=== PATIENT | female | born 1945 | race Caucasian/White ===

== ENCOUNTER 2019-11-27 10:56 | Outpatient (CLI) | payer MEDICARE, SELFPAY ==
[2019-11-27 11:15] VITALS: BP 153/82; PULSE 55; RESP 16; TEMP 36.7; O2SAT 96
[2019-11-27] MEDS: denosumab 60 mg SDV SUBCUT (11:20)
[2019-11-27 11:32] VITALS: BMI 24.3
[2019-11-27 11:50] VITALS: BP 153/84; PULSE 55; RESP 16; TEMP 36.5; O2SAT 96
== END 2019-11-27 10:57 | disposition home or self-care (01) ==
LOC: RHEOACUTE 10:58
PROVIDERS: Family Provider Family Medicine; Visit Provider Internal Medicine Rheumatology
DX: M81.0 Age-related osteoporosis without current pathological fracture (principal)
CPT/HCPCS: 96372; J0897

== ENCOUNTER 2020-01-08 07:43 | Outpatient (CLI) | payer MEDICARE, SELFPAY ==
--- NOTE | 2020-01-08 | MR_ITS ---
WS: [id number] MRI THORACIC SPINE WITHOUT CONTRAST TECHNIQUE: Sagittal T1, T2 and STIR imaging. Axial T2 imaging. Noncontrast imaging obtained. CLINICAL INFORMATION: THORACIC SPINE FRACTURE COMPARISON: None. FINDINGS: Moderate thoracic kyphosis. Anterior wedging in the mid and upper thoracic spine worse at T5-T8. Comp ression of the inferior endplate T8 with edema in the T8 vertebral body. Loss of approximately 25% ve rtebral body height. Anterior wedging at T7 with loss of approximately 50% vertebral body height with compression superior endplate and mild edema. Incidental atypical hemangioma T9 vertebral body. No r etropulsion. Compression at T5 and T6 appears chronic. No high-grade central canal stenosis. Cord signal is normal. Chronic biconcave compression at L3. Mod erate facet arthropathy lower lumbar spine. MR/MR thoracic spin wo con* [id number] IMPRESSION: 1. Acute to subacute compression fractures involving the T7 and T8 vertebral b odies with edema more prominent involving the T8 vertebral body. 2. No retropulsion. No high-grade central canal narrowing. 3. Loss of approximately 50% vertebral body height T7 with anterior wedging an d 25% at T8. 4. Chronic compression at T5 and T6. 5. Atypical hemangioma T9 vertebral body.
== END 2020-01-08 07:44 | disposition home or self-care (01) ==
LOC: RADWPI 07:47
PROVIDERS: Family Provider Family Medicine; PCP Family Medicine; Visit Provider Family Medicine
DX: S22.000A Wedge compression fracture of unspecified thoracic vertebra, initial encounter for closed fracture (principal); X58.XXXA Exposure to other specified factors, initial encounter
CPT/HCPCS: 72146

== ENCOUNTER 2020-10-01 07:57 | Outpatient (CLI) | payer MEDICARE, SELFPAY ==
[2020-10-01 08:09] VITALS: BMI 25.7
--- NOTE | 2020-10-01 08:23 | ECG_ITS ---
[facility] Test Date: 2020-10-01 Pat Name: Tanja Fulton Department: Room: Gender: Female Recovery Operator: : 1945 Requested By: Giorgi Del Real Order Number: [id number] Karen MD: Christoph Prado M.D. Interpretive Statements NAME OF STUDY: LEXISCAN SESTAMIBI STRESS TEST INDICATION: Chest Pressure, PROCEDURE: At the baseline, the EKG revealed sinus bradycardia with a rate of 51 bpm. Poor R wave progression. Some nonspecific T wave changes. The baseline blood pressure was 147/75 mm Hg with a heart rate of 51 beats/min. Lexiscan was infused over a period of 20 seconds. A total of 0.4 milligrams of Lexiscan was infused. The stress phase was continued for a total of 5 minutes. Heart rate at the end of the stress phase was 71 with a blood pressure 143/74. The EKG at the peak infusion revealed no significant changes. Sestamibi was injected 20 seconds after the Lexiscan infusion. Blood pressure at the end of the recovery phase was 67 with a heart rate of 156/75 per minute. CONCLUSION: 1. No significant EKG changes with the LexiScan infusion 2. No LexiScan induced chest pain or cardiac arrhythmia 3. Normal blood pressure and heart rate response 4. Sestamibi/sestamibi perfusion scan pending; see separate report. Electronically Signed On 10-05-2020 23:20:15 CDT by Christoph Prado M.D. [id number]
--- NOTE | 2020-10-01 08:24 | NMCV_ITS ---
NM louisa perf SPECT r/s* [id number] Tanja Fulton Age: 75 Gender: F : 1945 Exam Date: 10/01/2020 08:24 Ordering Phys: Giorgi Sanchez MD Technologist: ILAN Ceron Exam Location: [facility] Indications: CHEST PRESSURE STRESS TEST Please see separate stress test report in [facility] for full findings IMAGE PROTOCOL Rest/Stress 1 Lexiscan Day Radiopharmaceutical Dose (mCi) Administration Site Administered by Rest: Tc-99m 10.6 IV ILAN Reynolds Sestamibi Stress:Tc-99m 32.8 IV ILAN Reynolds Sestamibi Rest: 01-Oct-2020 60 Discovery 630 Stress: 01-Oct-2020 30 Discovery 630 0.4mg Lexiscan. Images obtained in supine and prone position. SPECT RESULTS Technical Quality: Excellent Raw Data Analysis: Normal Image Corrections: No attenuation or motion correction applied Summed Stress Score: 0 Summed Rest Score: 0 Summed Difference Score: 0 PERFUSION FINDINGS Fairly uniform myocardial tracer uptake with no significant perfusion of normalities. FUNCTIONAL RESULTS (calculated via Gated SPECT) Stress Image LV EF (%): 81 Stress EDV (mL):58 TID: 0.94 Stress ESV (mL):11 FUNCTIONAL FINDINGS: Segmental wall motion analysis revealing no gross wall motion normalities. IMPRESSIONS 1. Unremarkable myocardial perfusion imaging. 2. Normal LV ejection fraction of 81%. 3. LV wall motion analysis revealing no gross wall motion abnormalities. 4. Normal LV volume. No significant coronary ischemia, based on the above findings. No similar previous studies are available for comparison Dr Christoph Prado MD [facility] (Electronically Signed) Final Date: 01 October 2020 20:05 S
[2020-10-01] MEDS: regadenoson 0.4 Mg/5 ml Syringe IVP (10:17)
[2020-10-01 10:24] VITALS: BP 156/75; PULSE 69
== END 2020-10-01 07:58 | disposition home or self-care (01) ==
PROVIDERS: PCP Family Medicine; Visit Provider Family Medicine
DX: R07.89 Other chest pain (principal)
CPT/HCPCS: 78452; 93017; A9500; J2785

== ENCOUNTER 2020-10-15 13:52 | Outpatient (CLI) | payer MEDICARE, SELFPAY ==
--- NOTE | 2020-10-15 14:02 | CT_ITS ---
WS: [id number] CT CHEST ANGIOGRAPHY WITH REFORMATS HISTORY: ELEVATED D DIMER TECHNIQUE: Contiguous axial images are obtained through the chest during arterial injection of intrav enous contrast. Images are reconstructed to evaluate the pulmonary arteries. MIP imaging also reviewe d. All CT scans at [facility] use at least one of these dose optimization techniques: aut omated exposure control; mA and/or kV adjustment per patient size (includes targeted exams where dose is matched to clinical indication); or iterative reconstruction. CONTRAST: Omnipaque 350; 95 mL IV. DLP: 748.62 mGycm COMPARISON: 08/30/2015 Very good opacification of the pulmonary arteries. No filling defects or pulmonary embolism. Pulmonar y artery size is equal to the aorta. Mild atherosclerotic changes within the thoracic aorta with no a neurysm. Mild enlargement of the heart chambers. No filling defect in the RIGHT atrial appendage. No pericardial or pleural effusions. Mildly hyperexpanded lungs. Subsegmental atelectasis in the RIGHT middle lobe. No mass or pneumonia. RIGHT hilar lymph node measures 16 mm. This lymph node was also present on the study from 08/30/2015 wi thout increase in size. No additional enlarged lymph nodes. RIGHT adrenal adenoma measures 2.0 cm. Mild increase in the thoracic kyphosis. Osteopenia. Mild anterior wedging of T5, T6, T7 and T8. Numbe r of osteoporotic compression fractures has increased since 2016. Healed fracture in the inferior bod y of the sternum. CT/CT angio chest PE protcl [id number] IMPRESSION: 1. No pulmonary embolism. 2. No pneumonia. 3. Healed fracture in the body of the sternum. 4. Stable RIGHT adrenal mass which is likely an adenoma. 5. Increase in the number of osteoporotic compression fractures in the thoraci c spine since 2016.
[2020-10-15] MEDS: iohexol 350 mg/mL 100 mL Btl IV (14:46)
== END 2020-10-15 13:53 | disposition home or self-care (01) ==
PROVIDERS: PCP Family Medicine; Visit Provider Family Medicine
DX: R79.89 Other specified abnormal findings of blood chemistry (principal)
CPT/HCPCS: 71275; Q9967

== ENCOUNTER 2021-02-08 16:23 | Outpatient (CLI) | payer MEDICARE, SELFPAY ==
--- NOTE | 2021-02-08 16:45 | MR_ITS ---
WS: [id number] MRI LUMBAR SPINE NONCONTRAST HISTORY: S32.030A - Wedge compression fracture of third lumbar vertebral body. COMPARISON: 01/14/2024 radiograph. TECHNIQUE: Sagittal and axial multisequence imaging is submitted. Bones are osteoporotic. Moderate increase in thoracic kyphosis. Compression fractures at T5, T6, T7 a nd T8 without retropulsion. L5 anterolisthesis by 6 mm. New compression fracture involving the superior endplate of L1. Very slig ht bowing of the posterior superior endplate. Compression fracture of L1 by approximately 20%. Focal area of increased marrow edema in the posterior RIGHT L2 vertebral body without loss of height. Remot e L3 compression fracture by 30%. There is also a small amount of increased T2 signal involving the f ar lateral LEFT T12 vertebral body without costochondral junction. There may be a small amount of mar row edema or soft tissue edema. Overall no loss of vertebral body height. Disc desiccation throughout. Most significant at L5-S1. Conus terminates normally at L1-2 disc level. T12-L1: Mild annular disc bulging and mild osteophytic ridging. There is very slight retropulsion by 2 mm of the posterior superior endplate of L1. Minimal encroachment upon the subarticular recesses. N o significant stenosis. L1-L2: Mild annular disc bulging and osteophytic ridging. Very mild bilateral foraminal narrowing. L2-L3: Asymmetric annular disc bulging extends greatest to the LEFT with bilateral moderate facet edwige nt arthropathy also greatest on the LEFT. LEFT foraminal disc protrusion with annular fissure contrib uting to moderate stenosis of the LEFT subarticular recess and foramen. Mild stenosis on the RIGHT. M ild central stenosis and small amount of fluid in the facet joints. L3-L4: Diffuse annular disc bulging and mild osteophytic ridging with bilateral ligamentum flavum hyp ertrophy and facet hypertrophy. Moderate bilateral subarticular and foraminal stenosis. Very mild abby tral stenosis. L4-L5: Diffuse annular disc bulging and mild osteophytic ridging. Disc bulges asymmetrically to the L EFT. Moderate ligamentum flavum and facet arthritis. Mild bilateral foraminal stenosis. LEFT foramina l disc bulging does contact the L4 nerve root. L5-S1: Diffuse annular disc bulging and osteophytic ridging with facet and ligamentum flavum hypertro phy. Moderate to severe LEFT and moderate RIGHT foraminal stenosis. Disc contact on the L5 nerve root s. Ectasia and atherosclerotic changes within the abdominal aorta. MR/MR lumbar spine wo con* [id number] IMPRESSION: 1. Acute L1 compression fracture by 20% with 2 mm retropulsion of posterior [place] perior endplate. 2. Small amount of marrow edema in the RIGHT lateral L2 vertebral body may be a Schmorl's node or additional fracture. 3. Nonacute 30% L3 compression fracture. 4. Very small amount of edema in the far lateral T12 LEFT vertebral body or os teochondral junction. 5. Remote compression fractures at T5, T6, T7 and T8. 6. LEFT foraminal disc protrusion at L2-3 resulting in moderate stenosis LEFT subarticular recess and LEFT foramen. Mild central stenosis and RIGHT foraminal stenosis at L2-3. 7. Moderate bilateral subarticular and foraminal stenosis at L3-4. 8. LEFT foraminal disc bulging L4-5 contacts the L4 nerve root. 9. Moderate to severe LEFT and moderate RIGHT foraminal stenosis at L5-S1 with contact on the L5 nerve roots. 10. L5 anterolisthesis by 6 mm.
== END 2021-02-08 16:24 | disposition home or self-care (01) ==
LOC: RADSHAW 16:27
PROVIDERS: PCP Family Medicine; Visit Provider Orthopaedic Surgery
DX: S32.030A Wedge compression fracture of third lumbar vertebra, initial encounter for closed fracture (principal); M48.07 Spinal stenosis, lumbosacral region; M51.26 Other intervertebral disc displacement, lumbar region; M48.061 Spinal stenosis, lumbar region without neurogenic claudication; S22.059A Unspecified fracture of T5-T6 vertebra, initial encounter for closed fracture; S22.069A Unspecified fracture of T7-T8 vertebra, initial encounter for closed fracture; S32.039A Unspecified fracture of third lumbar vertebra, initial encounter for closed fracture; X58.XXXA Exposure to other specified factors, initial encounter; R60.0 Localized edema
CPT/HCPCS: 72148

== ENCOUNTER 2021-10-13 11:47 | Outpatient (CLI) | payer MEDICARE, SELFPAY ==
[2021-10-13 11:56] VITALS: BP 163/77; PULSE 69; RESP 18; TEMP 36.1; O2SAT 90
[2021-10-13] MEDS: denosumab 60 mg SDV SUBCUT (12:01)
[2021-10-13 12:09] VITALS: BP 143/80; PULSE 65; RESP 18; TEMP 36.2; O2SAT 95
== END 2021-10-13 11:48 | disposition home or self-care (01) ==
PROVIDERS: PCP Family Medicine; Referring Provider Family Medicine; Visit Provider Family Medicine
DX: M81.0 Age-related osteoporosis without current pathological fracture (principal)
CPT/HCPCS: 96372; J0897

== ENCOUNTER 2021-11-03 13:47 | Oncology outpatient (recurring) (ONCR) | payer MEDICARE, SELFPAY ==
[2021-11-03 16:24] LABS: LAB Peripheral Smear Sent for Review
[2021-11-03 17:09] LABS: 25 Hydroxy Vitamin D 18 ng/mL (30-100); Alanine Aminotransferase 9 U/L (0-33); Alkaline Phosphatase 104 IU/L (35-105); Anion Gap 13.1 (5-19); Aspartate Amino Transferase 17 U/L (0-32); Blood Urea Nitrogen 24 mg/dL (8-23); Calcium 9.2 mg/dL (8.5-10.5); Carbon Dioxide 29 mmol/L (22-29); Chloride 102 mmol/L (98-107); Globulin 3.7 g/dL (1.3-4.6); Glucose 92 mg/dL (65-115); Lactate Dehydrogenase 173 U/L (135-214); Osmolality Calculated 294 mOsm/kg (285-295); Potassium 4.1 mmol/L (3.5-5.1); Sodium 140 mmol/L (136-145); Total Bilirubin 0.3 mg/dL (0.15-1.2); Total Protein 7.7 g/dL (6.6-8.7)
== END 2021-11-23 23:59 | disposition home or self-care (01) ==
LOC: ONCMED 13:47
PROVIDERS: PCP Family Medicine; Visit Provider Internal Medicine Medical Oncology
DX: D69.6 Thrombocytopenia, unspecified (principal); D69.1 Qualitative platelet defects; R53.83 Other fatigue; Z79.899 Other long term (current) drug therapy
CPT/HCPCS: 36415; 80053; 82306; 83615; 84443; 85025; 99204; 99999

== ENCOUNTER 2021-11-30 14:34 | Outpatient (CLI) | payer MEDICARE, SELFPAY | END 2021-11-30 14:35 | disposition home or self-care (01) | PROVIDERS: PCP Family Medicine; Referring Provider Family Medicine; Visit Provider Internal Medicine Medical Oncology | DX: D69.6 Thrombocytopenia, unspecified (principal) | CPT/HCPCS: 85025 ==

== ENCOUNTER 2021-12-09 13:33 | Oncology outpatient (recurring) (ONCR) | payer MEDICARE, SELFPAY ==
[2021-12-09 13:55] LABS: Erythrocyte Sedimentation Rate 17 mm/hr (0-15)
[2021-12-09 13:56] LABS: Basophils # 0.1 10^3/uL (0.0-0.1); Basophils % 0.9 %; Eosinophils # 0.2 10^3/uL (0.0-0.8); Hematocrit 37.2 % (37.0-47.0); Hemoglobin 12.2 g/dL (11.5-15.3); Lymphocytes # 2.2 10^3/uL (0.8-4.8); Lymphocytes % 33.3 %; Mean Corpuscular HGB Conc 32.8 g/dL (30.0-36.0); Mean Corpuscular Hemoglobin 29.9 pg (28.0-34.0); Mean Corpuscular Volume 91.2 fl (81-99); Mean Platelet Volume 10.2 fL (7.4-10.4); Monocytes # 0.6 10^3/uL (0.2-0.9); Monocytes % 9.2 %; Neutrophils # 3.52 10^3/uL (1.8-7.7); Neutrophils % 53.1 %; Nucleated Red Blood Cells % 0 %; Platelet Count 227 10^3/cmm (130-400); Red Blood Count 4.08 10^6/uL (4.1-5.3); Red Cell Distribution Width 12.9 % (12.1-15.1); White Blood Count 6.6 10^3/uL (4.0-10.0)
[2021-12-09 14:32] LABS: LAB Peripheral Smear Sent for Review
== END 2021-12-23 23:59 | disposition home or self-care (01) ==
PROVIDERS: PCP Family Medicine; Visit Provider Internal Medicine Medical Oncology
DX: D69.6 Thrombocytopenia, unspecified (principal)
CPT/HCPCS: 85025; 85651

== ENCOUNTER 2022-04-19 11:52 | Outpatient (CLI) | payer MEDICARE, SELFPAY ==
[2022-04-19 12:09] VITALS: BP 165/70; PULSE 61; RESP 18; TEMP 36.6; O2SAT 93
[2022-04-19] MEDS: denosumab 60 mg SDV SUBCUT (12:24)
[2022-04-19 12:35] VITALS: BP 121/64; PULSE 54; RESP 18; TEMP 36.3; O2SAT 93
== END 2022-04-19 11:53 | disposition home or self-care (01) ==
PROVIDERS: PCP Family Medicine; Referring Provider Family Medicine; Visit Provider Family Medicine
DX: M81.0 Age-related osteoporosis without current pathological fracture (principal); Z01.89 Encounter for other specified special examinations
CPT/HCPCS: 36415; 80053; 85025; 85651; 86140; 96372; J0897

== ENCOUNTER 2022-10-21 10:36 | Oncology outpatient (recurring) (ONCR) | payer MEDICARE, SELFPAY ==
[2022-10-21 11:27] VITALS: BP 140/64; PULSE 56; TEMP 36.8; O2SAT 89
[2022-10-21] MEDS: denosumab 60 mg SDV SUBCUT (11:37)
== END 2022-10-23 23:59 | disposition home or self-care (01) ==
LOC: ONCMED 10:36
PROVIDERS: PCP Family Medicine; Visit Provider Family Medicine
DX: M81.0 Age-related osteoporosis without current pathological fracture (principal); Z79.899 Other long term (current) drug therapy
CPT/HCPCS: 96372; J0897

== ENCOUNTER → 2022-12-21 09:58 | Outpatient (BNVA) | payer MEDICARE, SELFPAY | PROVIDERS: PCP Family Medicine; Visit Provider Internal Medicine Pulmonary Disease | DX: R06.02 Shortness of breath (principal); Z87.891 Personal history of nicotine dependence | CPT/HCPCS: 99204 ==

== ENCOUNTER 2023-01-10 11:04 | Outpatient (CLI) | payer MEDICARE, SELFPAY ==
[2023-01-10 11:08] VITALS: BP 149/88
[2023-01-10] MEDS: albuterol 2.5 mg/3 mL Neb INHALATION (11:08)
[2023-01-10 11:21] VITALS: PULSE 70; RESP 20; O2SAT 93
[2023-01-10 11:26] VITALS: PULSE 68
== END 2023-01-10 11:05 | disposition home or self-care (01) ==
LOC: RT 11:04
PROVIDERS: PCP Family Medicine; Visit Provider Internal Medicine Pulmonary Disease
DX: J44.9 Chronic obstructive pulmonary disease, unspecified (principal)
CPT/HCPCS: 94060; 94618; 94726; 94729; J7613

== ENCOUNTER → 2023-02-20 08:18 | Outpatient (BNVA) | payer MEDICARE, SELFPAY | PROVIDERS: PCP Family Medicine; Visit Provider Internal Medicine Pulmonary Disease | DX: J44.9 Chronic obstructive pulmonary disease, unspecified (principal); Z87.891 Personal history of nicotine dependence; Z12.2 Encounter for screening for malignant neoplasm of respiratory organs | CPT/HCPCS: 99214 ==

== ENCOUNTER 2023-03-02 13:15 | Outpatient (CLI) | payer MEDICARE, SELFPAY ==
--- NOTE | 2023-03-02 13:15 | CT_ITS ---
WS: [id number] LDCT LUNG CANCER SCREENING TECHNIQUE: Noncontrast CT of the chest with coronal and sagittal reformatted images. CLINICAL INFORMATION: Cancer Screen COMPARISON: CTA 10/15/2020 DLP: 53.12 mGy.cm DIvol: Mean CTDIvol: 1.30 (mGy) All CT scans at [facility] use at least one of these dose optimization techniques: automat ed exposure control; mA and/or kV adjustment per patient size (includes targeted exams where dose is matched to clinical indication); or iterative reconstruction. FINDINGS: Tiny noncalcified nodule RIGHT upper lobe along the fissure measuring 4.5 mm. Fibrosis in t he RIGHT lung apex. Hazy atelectasis in the lung bases. Hyperinflation. Subsegmental atelectasis in the RIGHT middle lobe is unchanged compared to previous. Stable prominent RIGHT hilar lymph node unchanged. Stable RIGHT adrenal adenoma. Aortic calcification. Coronary calcification. No axillary lymphadenopat hy. Small esophageal renal hernia. Multiple chronic appearing compression fractures and anterior wedg ing in the mid and lower thoracic spine. IMPRESSION: CT/CT lung screening [id number] LUNG-RADS: 2-Benign Appearance or Behavior FOLLOW UP: 12 Month: Continue annual screening with LDCT
== END 2023-03-02 13:16 | disposition home or self-care (01) ==
LOC: RAD 13:17
PROVIDERS: PCP Family Medicine; Visit Provider Internal Medicine Pulmonary Disease
DX: Z12.2 Encounter for screening for malignant neoplasm of respiratory organs (principal); Z87.891 Personal history of nicotine dependence
CPT/HCPCS: 71271

== ENCOUNTER 2023-04-20 14:03 | Oncology outpatient (recurring) (ONCR) | payer MEDICARE, SELFPAY ==
[2023-04-20] MEDS: denosumab 60 mg SDV SUBCUT (14:56)
[2023-04-20 15:01] VITALS: BP 132/77; PULSE 60; RESP 17; TEMP 35.9; O2SAT 94
== END 2023-04-25 23:59 | disposition home or self-care (01) ==
PROVIDERS: PCP Family Medicine; Visit Provider Family Medicine
DX: M81.0 Age-related osteoporosis without current pathological fracture (principal)
CPT/HCPCS: 96372; J0897

== ENCOUNTER 2023-07-05 13:08 | Outpatient (CLI) | payer MEDICARE, SELFPAY ==
--- NOTE | 2023-07-05 14:00 | XR_ITS ---
WS: [id number] SCREENING DEXA SCAN [employer] CLINICAL INFORMATION: POSTMENOPAUSAL COMPARISON: 2019 FINDINGS: The L1-L4 bone mineral density measures 1.076 g/cm2. This corresponds to a T score score of -0.9 and Z score of 0.6. Left femoral neck bone mineral density measures 0.648 g/cm2. This corresponds to a T score of -2.9 an d Z score of -1.2. Right femoral neck bone mineral density measures 0.636 g/cm2. This corresponds to a T score -2.9of an d Z score of -1.2. Mean femoral neck bone mineral density measures 0.642 g/cm2. This corresponds to a T score of -2.9 an d Z score of -1.2. IMPRESSION: Normal bone mineralization lumbar spine. Osteoporosis femoral necks. Patient's FRAX calculated 10 year probability for major osteoporotic fracture is 32.9% and osteoporot ic hip fracture is 12.7%. Bone mineral density lumbar spine increased 16.3% Bone mineral density femoral necks decreased -3.0%
== END 2023-07-05 13:09 | disposition home or self-care (01) ==
PROVIDERS: PCP Family Medicine; Visit Provider Family Medicine
DX: Z78.0 Asymptomatic menopausal state (principal)
CPT/HCPCS: 77080

== ENCOUNTER 2023-11-28 10:53 | Oncology outpatient (recurring) (ONCR) | payer MEDICARE, SELFPAY ==
[2023-11-28] MEDS: acetaminophen 325 mg Tablet 650 MG PO (12:29)
[2023-11-28] MEDS: zoledronic acid 5 MG in empty flexible container 1 EACH 400 MG IV (12:35)
[2023-11-28 12:55] VITALS: BP 120/78; PULSE 78; RESP 18; TEMP 36.6; O2SAT 98
== END 2023-12-24 23:59 | disposition home or self-care (01) ==
LOC: ONCMED 10:54
PROVIDERS: PCP Family Medicine; Visit Provider Family Medicine
DX: M81.0 Age-related osteoporosis without current pathological fracture (principal)
CPT/HCPCS: 96365; J3489

== ENCOUNTER 2024-04-24 17:04 | Outpatient (CLI) | payer MEDICARE, SELFPAY ==
--- NOTE | 2024-04-24 17:08 | CT_ITS ---
WS: [id number] LDCT LUNG CANCER SCREENING HISTORY: NICOTINE DEPENDENCE TECHNIQUE: Axial imaging performed from the apices to 1 cm below the costophrenic angles. Coronal and sagittal reformats are submitted with axial MIP series. All CT scans at [facility] use at least one of these dose optimization techniques: automated exposure control; mA and/or kV adjustment per patient size (includes targeted exams where dose is matched to clinical indication); or iterativ e reconstruction. DLP: 56.61 mGy.cm DIvol: Mean CTDIvol: 1.10 (mGy) COMPARISON: 03/02/2023 Diagnostic quality: Satisfactory Lungs: Moderate pulmonary hyperexpansion. Reidentified is subsegmental atelectasis in the RIGHT middl e lobe. Mild progression since 10/15/2020. No obstructing bronchial lesion identified. No new or incre asing mass or nodule. No pneumonia. Heart: Moderate cardiomegaly. No pericardial effusion.. Other findings: Moderate atherosclerotic plaque thoracic aorta. Plaque extends into the great vessels . Mildly dilated pulmonary artery. No adenopathy identified. Lymph nodes to be difficult to exclude a t the hilar regions. Small hiatal hernia. Suprarenal aortic calcifications. RIGHT adrenal soft tissue thickening consistent with an adenoma. Moderate increase in thoracic kyphosis with multiple osteopor otic compression fractures in mid thoracic spine. Remote sternal fracture with displacement and parti al healing. CT/CT lung screening [id number] IMPRESSION: LUNG-RADS: 2-Benign Appearance or Behavior FOLLOW UP: 12 Month: Continue annual screening with LDCT OTHER FINDINGS (S MODIFIER): None.
== END 2024-04-24 17:05 | disposition home or self-care (01) ==
LOC: RAD 17:05
PROVIDERS: PCP Family Medicine; Visit Provider Family Medicine
DX: Z12.2 Encounter for screening for malignant neoplasm of respiratory organs (principal); Z87.891 Personal history of nicotine dependence; J98.11 Atelectasis; I51.7 Cardiomegaly; I70.0 Atherosclerosis of aorta; D35.01 Benign neoplasm of right adrenal gland; M40.204 Unspecified kyphosis, thoracic region
CPT/HCPCS: 71271

== ENCOUNTER 2024-12-16 12:43 | Oncology outpatient (recurring) (ONCR) | payer MEDICARE, SELFPAY ==
[2024-12-16] MEDS: denosumab 60 mg SDV SUBCUT (13:25)
== END 2024-12-23 23:59 | disposition home or self-care (01) ==
PROVIDERS: PCP Family Medicine; Visit Provider Family Medicine
DX: M81.0 Age-related osteoporosis without current pathological fracture (principal); Z79.899 Other long term (current) drug therapy
CPT/HCPCS: 96372; J0897

== ENCOUNTER 2025-04-19 11:44 | Emergency (ER) | payer MEDICARE, SELFPAY ==
[2025-04-19 11:51] VITALS: BP 142/67; PULSE 62; RESP 18; TEMP 36.5; O2SAT 90; BMI 27.4
--- OUTSIDE RECORDS SUMMARY | 2025-04-19 11:52 | XMS_ITS | Data Portability ---
Author Organization [facility] Farrah Guerrero, [facility] Address [address] [place] [id number] Care Team Providers Care Dye [facility] Vat Worker Name Role Phone REYMUNDO SAAVEDRA Primary Care Provider Assessment Encounter Date Assessment Date Assessment LastModified by Organization Details LastModified Time 10/02/2024 10/02/2024 We will remove her eye lesion at her next visit. We discussed options to address her shortness of breath including rechecking spirometry, changing her medication, or referring her to a farm management professor . She did not want to do any of those things at this time. Not available 10/02/2024 18:48:28 11/26/2024 11/26/2024 Since skin tag was affecting visual field it was removed. Not available 11/26/2024 14:04:39 Plan of Treatment Reminders Order Date Submit Date Provider Last Modified By Organization Details Last Modified Time Details Appointments RECHEC K 2024 12:30P M Reymundo Saavedra MD Not available Not available Not available Lab lipid panel, blood 2024 025 MATTHEW [facility], [address], [place], [address], 11/26/2024 15:04:38 CBC 2024 025 [facility], [address], [address], [place], [address], 11/26/2024 14:21:32 CMP, serum or plasma 2024 025 [facility], [address], [address], [place], [address], 11/26/2024 15:04:36 vitami n D, 25-hyd jade, total, serum 2024 025 [place], [address] [facility] [address], [place], [address], 11/27/2024 06:13:46 CBC 2023 024 [facility], [address], [place], [address], 05/06/2024 16:56:52 CBC 2023 024 [facility], [address], [place], [address], 03/05/2024 15:01:31 TSH, serum or plasma 2023 024 [facility] [address] [place], [address], 03/05/2024 15:49:33 Referral home health referr al - Due to multip le compre ssion fractu res, back pain, and progre ssive copd, the patien t is no longer able to do many adls around the house. Please eval. 2024 025 [email or web address] Not available 02/11/2025 18:40:15 Procedures None record ed. Surgeries None record ed. Imaging None record ed. Medication Orders dewayne ukast 10 mg tablet 2024 025 [facility][id number], [address], [place], [address], 02/10/2025 20:30:17 predni sone 20 mg tablet 2024 025 [facility]acy #[id number], [address], [address], [place], [address], 02/22/2025 05:01:50 promet hazine -DM 6.25 mg-15 mg/5 mL oral syrup 2023 024 [id number], [address], [address], [place], [address], 05/06/2024 16:26:13 doxycy smith hyclat e 100 mg capsul e 2023 025 [id number], [address], [address], [place], [address], 10/02/2024 12:42:48 Breztr i Aerosp here 160 mcg-9m cg-4.8 mcg/ac tuatio n HFA aeroso l inhale r 2023 024 [id number], [address], [place], [address], 03/05/2024 12:59:22 Patient TargetsNo targets recorded. Patient Instructions Encounter Date Encounter Id Patient Instructions Last Modified By Organization Details Last Modified Time 03/05/2024 [id number] complete PFT w/ post bronchodilator spirometry* [email or web address] Not available 03/20/2024 17:52:18 10/02/2024 [id number] back pain: care instructions Not available 10/02/2024 18:47:42 Reason for Referral Home Health Referral for Chr onic obstructive pulmonary disease Due to multiple compression fractures, back pain, and progressive copd, the patient is no longer able to do many adls around the house. Please eval. Referring Physician: Reymundo Saavedra, Family Medicine, Encounter Date: 02/10/2025 Results Created Date Observation Date Name Description Value Unit Range Abnormal Flag Note LastModifiedBy Organization Detail LastModifiedTime 03/05/20 24 03/05/2024 CBC WBC 7.6 x10 4.0-10 .5 Not Available [facility] [address], [place], [address], 03/05/2024 15:01:31 03/05/20 24 03/05/2024 CBC RBC 4.09 x10 3.50-5 .50 Not Available [facility] [address], [place], [address], 03/05/2024 15:01:03/05/20 24 03/05/2024 CBC HGB 13.0 g/dL 12.0-1 6.0 Not Available [facility] [address], [place], [address], 03/05/2024 15:01:03/05/20 24 03/05/2024 CBC HCT 38.3 % 37.0-4 7.0 Not Available [facility] [address], [place], [address], 03/05/2024 15:01:03/05/20 24 03/05/2024 CBC MCV 93.6 fL 80.0-9 9.9 Not Available [facility] [address], [place], [address], 03/05/2024 15:01:03/05/20 24 03/05/2024 CBC MCH 31.7 pg 27.0-3 2.0 Not Available [facility] [address], [place], [address], 03/05/2024 15:01:03/05/20 24 03/05/2024 CBC MCHC 33.9 g/dL 32.0-3 6.0 Not Available [facility] [address], [place], [address], 03/05/2024 15:01:31 03/05/20 24 03/05/2024 CBC RDW 13.4 % 11.5-1 4.5 Not Available [facility] [address] [facility] [address], [place], [address], 03/05/2024 15:01:03/05/20 24 03/05/2024 CBC plt 21.2 x10 140.0- 451.0 panic low Not Available [facility] [address] [facility] 1, [place], [address], 03/05/2024 15:01:03/05/20 24 03/05/2024 CBC lymphocytes % 35.0 % 20.0-5 0.0 Not Available [facility] [address] [facility], [place], [address], 03/05/2024 15:01:31 03/05/20 24 03/05/2024 CBC granulcytes % 55.2 % 30.0-7 0.0 Not Available [facility] [address] [facility], [place], [address], 03/05/2024 15:01:31 03/05/20 24 03/05/2024 CBC monocytes % 8.0 % 2.0-16 .0 Not Available [facility] [address] [facility] 1, [place], [address], 03/05/2024 15:01:03/05/20 24 03/05/2024 CBC granulcytes# 4.2 x10 Not Nadine ilable [facility] [address] [facility] 1, [place], [address], 03/05/2024 15:01:31 03/05/20 24 03/05/2024 CBC lymphocytes # 2.7 x10 Not Available [facility] [address] [facility] 1, [place], [address], 03/05/2024 15:01:31 03/05/20 24 03/05/2024 CBC monocytes # 0.6 x10 Not Avai lable [facility] [address] [facility] 1, [place], [address], 03/05/2024 15:01:31 03/05/20 24 03/05/2024 TSH, serum or plasm a TSH 2.62 uIU/m L 0.49-3 .82 normal Not Available [facility] [address] [place], [address], 03/05/2024 12:55:08 05/06/20 24 05/06/2024 CBC WBC 5.9 x10 4.0-10 .5 Not Available [facility] [address] [facility] [address] [facility] 1, [place], [address], 05/06/2024 16:56:52 05/06/20 24 05/06/2024 CBC RBC 3.54 x10 3.50-5 .50 Not Available [facility] [address] [facility] [address] [facility] 1, [place], [address], 05/06/2024 16:56:52 05/06/20 24 05/06/2024 CBC HGB 13.0 g/dL 12.0-1 6.0 Not Available [facility] [address] [facility] [address] [facility] 1, [place], [address], 05/06/2024 16:56:52 05/06/20 24 05/06/2024 CBC HCT 32.9 % 37.0-4 7.0 low Not Available [facility] [address] [facility] [address] [facility] 1, [place], [address], 05/06/2024 16:56:52 05/06/20 24 05/06/2024 CBC MCV 92.9 fL 80.0-9 9.9 Not Available [facility] [address] [facility] 1, [place], [address], 05/06/2024 16:56:52 05/06/20 24 05/06/2024 CBC MCH 36.8 pg 27.0-3 2.0 high Not Available [facility] [address] [facility] [facility] [facility] 1, [place], [address], 05/06/2024 16:56:52 05/06/20 24 05/06/2024 CBC MCHC 39.6 g/dL 32.0-3 6.0 high Not Available [facility] [address] [facility] [address] [facility] 1, [place], [address], 05/06/2024 16:56:52 05/06/20 24 05/06/2024 CBC RDW 13.1 % 11.5-1 4.5 Not Available [facility] [address] [facility] [address] [facility] 1, [place], [address], 05/06/2024 16:56:52 05/06/20 24 05/06/2024 CBC plt 31.4 x10 140.0- 451.0 panic low Not Available [facility] [address] [facility] [address] [facility] 1, [place], [address], 05/06/2024 16:56:52 05/06/20 24 05/06/2024 CBC lymphocytes % 28.3 % 20.0-5 0.0 Not Available [facility] [address] [facility] 1, [place], [address], 05/06/2024 16:56:52 05/06/20 24 05/06/2024 CBC granulcytes % 55.2 % 30.0-7 0.0 Not Available [facility] [address] [facility] [address] [facility] 1, [place], [address], 05/06/2024 16:56:52 05/06/20 24 05/06/2024 CBC monocytes % 13.0 % 2.0-16 .0 Not Available [facility] [address] [facility], [place], [address], 05/06/2024 16:56:52 05/06/20 24 05/06/2024 CBC granulcytes# 3.3 x10 Not Nadine ilable [facility] [address] [facility], [place], [address], 05/06/2024 16:56:52 05/06/20 24 05/06/2024 CBC lymphocytes # 1.7 x10 Not Available [place] [facility] [address] [facility], [place], [address], 05/06/2024 16:56:52 05/06/20 24 05/06/2024 CBC monocytes # 0.8 x10 Not Avai lable [place] [facility] [address] [facility], [place], [address], 05/06/2024 16:56:52 11/27/19 25 11/26/2024 CBC WBC 8.9 x10 4.0-10 .5 Not Available [facility] [address] [facility], [place], [address], 11/26/2024 14:21:32 11/27/19 25 11/26/2024 CBC RBC 4.23 x10 3.50-5 .50 Not Available [facility] [address] [facility], [place], [address], 11/26/2024 14:21:32 11/27/19 25 11/26/2024 CBC HGB 13.3 g/dL 12.0-1 6.0 Not Available [place] [facility] [address] [facility], [place], [address], 11/26/2024 14:21:32 11/27/19 25 11/26/2024 CBC HCT 40.4 % 37.0-4 7.0 Not Available [facility] [address] [facility] 1, [place], [address], 11/26/2024 14:21:32 11/27/19 25 11/26/2024 CBC MCV 95.6 fL 80.0-9 9.9 Not Available [facility] [address] [facility] [facility] [address] [facility] 1, [place], [address], 11/26/2024 14:21:32 11/27/19 25 11/26/2024 CBC MCH 31.4 pg 27.0-3 2.0 Not Available [facility] [address] [facility] 1, [place], [address], 11/26/2024 14:21:32 11/27/19 25 11/26/2024 CBC MCHC 32.9 g/dL 32.0-3 6.0 Not Available [facility] [address] [facility] [address] [facility] 1, [place], [address], 11/26/2024 14:21:32 11/27/19 25 11/26/2024 CBC RDW 13.6 % 11.5-1 4.5 Not Available [facility] [address] [facility] 1, [place], [address], 11/26/2024 14:21:32 11/27/19 25 11/26/2024 CBC plt 106.9 x10 140.0- 451.0 low Not Available [facility] [address] [facility] 1, [place], [address], 11/26/2024 14:21:32 11/27/19 25 11/26/2024 CBC lymphocytes % 26.6 % 20.0-5 0.0 Not Available [facility] [address] [facility] 1, [place], [address], 11/26/2024 14:21:32 11/27/19 25 11/26/2024 CBC granulcytes % 62.3 % 30.0-7 0.0 Not Available [facility] [address] [facility] 1, [place], [address], 11/26/2024 14:21:32 11/27/19 25 11/26/2024 CBC monocytes % 8.4 % 2.0-16 .0 Not Available [facility] [address] [facility] [address], [place], [address], 11/26/2024 14:21:32 11/27/19 25 11/26/2024 CBC granulcytes# 5.6 x10 Not Nadine ilable [facility] [address] [facility] [address], [place], [address], 11/26/2024 14:21:32 11/27/19 25 11/26/2024 CBC lymphocytes # 2.4 x10 Not Available [facility] [address] [facility] [address], [place], [address], 11/26/2024 14:21:32 11/27/19 25 11/26/2024 CBC monocytes # 0.8 x10 Not Avai lable [facility] [address] [facility] [address], [place], [address], 11/26/2024 14:21:32 11/27/19 25 11/26/2024 CMP (FEMA LE) glucose 106.0 mg/dL 60.0-9 9.0 high Not Available [facility] [address] [facility] 1, [place], [address], 11/26/2024 15:04:35 11/27/19 25 11/26/2024 CMP (FEMA LE) BUN (blood urea nitrogen) 20.0 mg/dL 10.0-2 6.0 Not Available [facility] [address] [facility], [place], [address], 11/26/2024 15:04:35 11/27/19 25 11/26/2024 CMP (FEMA LE) creatinine (serum) 0.8 mg/dL 0.4-1. 5 Not Available [facility] [address] [facility], [place], [address], 11/26/2024 15:04:35 11/27/19 25 11/26/2024 CMP (FEMA LE) BUN/creatini ne ratio 25.00 ratio Not Available [facility] [address] [facility] 1, [place], [address], 11/26/2024 15:04:35 11/27/19 25 11/26/2024 CMP (FEMA LE) eGFR calculated 73.4 Not Available [facility] [address] [facility] 1, [place], [address], 11/26/2024 15:04:35 11/27/19 25 11/26/2024 CMP (FEMA LE) total protein 8.2 g/dL 6.0-8. 5 Not Available [facility] [address] [facility], [place], [address], 11/26/2024 15:04:35 11/27/19 25 11/26/2024 CMP (FEMA LE) total bilirubin 0.6 mg/dL 0.2-1. 3 Not Available [facility] [address] [facility] 1, [place], [address], 11/26/2024 15:04:35 11/27/19 25 11/26/2024 CMP (FEMA LE) albumin 4.1 g/dL 3.5-5. 5 Not Available [facility] [address] [facility] 1, [place], [address], 11/26/2024 15:04:35 11/27/19 25 11/26/2024 CMP (FEMA LE) globulin 4.1 calc Not Available [facility] [address] [facility] [address], [place], [address], 11/26/2024 15:04:35 11/27/19 25 11/26/2024 CMP (FEMA LE) AST (SGOT) 29.0 U/L 0.0-46 .0 Not Available [facility] [address] [facility] 1, [place], [address], 11/26/2024 15:04:35 11/27/19 25 11/26/2024 CMP (FEMA LE) altv (SGPT) 17.0 U/L 13.0-6 9.0 normal Not Available [facility] [address] [facility] 1, [place], [address], 11/26/2024 15:04:35 11/27/19 25 11/26/2024 CMP (FEMA LE) A/G ratio 1.0 ratio Not Available [facility] [address] [facility] 1, [place], [address], 11/26/2024 15:04:35 11/27/19 25 11/26/2024 CMP (FEMA LE) ALP phos 96.0 U/L 30.0-1 40.0 normal Not Available [facility] [address] [facility] 1, [place], [address], 11/26/2024 15:04:35 11/27/19 25 11/26/2024 CMP (FEMA LE) calcium 10.5 mg/dL 8.4-10 .5 Not Available [facility] [address] [facility] 1, [place], [address], 11/26/2024 15:04:35 11/27/19 25 11/26/2024 CMP (FEMA LE) sodium 138.0 mmol/ L 136.0- 145.0 Not Available [facility] [address] [facility] [address], [place], [address], 11/26/2024 15:04:35 11/27/19 25 11/26/2024 CMP (FEMA LE) potassium 3.4 mmol/ L 3.5-5. 1 low Not Available [facility] [address] [facility] 1, [place], [address], 11/26/2024 15:04:35 11/27/19 25 11/26/2024 CMP (FEMA LE) chloride 95.0 mmol/ L 98.0-1 10.0 abnormal Not Available [facility] [address] [facility] 1, [place], [address], 11/26/2024 15:04:35 11/27/19 25 11/26/2024 CMP (FEMA LE) C02 36.0 mmol/ L 22.0-3 1.0 high Not Available [facility] [address] [facility] 1, [place], [address], 11/26/2024 15:04:35 11/27/19 25 11/26/2024 CMP (FEMA LE) anion gap 7.0 calc Not Available [facility] [address] [facility] 1, [place], [address], 11/26/2024 15:04:35 11/27/19 25 11/26/2024 CMP (FEMA LE) osmolality 288.0 calc Not Available [facility] [address] [facility] 1, [place], [address], 11/26/2024 15:04:35 11/27/19 25 11/26/2024 LIPID PROFI LE (FEMA LE) cholesterol 153.0 mg/dL 0.0-20 0.0 Not Available [facility] [address] [place], [address], 11/26/2024 15:04:38 11/27/19 25 11/26/2024 LIPID PROFI LE (FEMA LE) trig 87.0 mg/dL 0.0-15 0.0 Not Available [facility] [address] [address], [place], [address], 11/26/2024 15:04:38 11/27/19 25 11/26/2024 LIPID PROFI LE (FEMA LE) HDL - direct 42.0 mg/dL >40.0 Not Available [facility] [address] [facility] 1, [place], [address], 11/26/2024 15:04:38 11/27/19 25 11/26/2024 LIPID PROFI LE (FEMA LE) VLDL - direct 17.4 mg/dL Not Available [facility] [address] [address], [place], [address], 11/26/2024 15:04:38 11/27/19 25 11/26/2024 LIPID PROFI LE (FEMA LE) LDL - direct 93.6 mg/dL 0.0-13 0.0 Not Available [facility] [address] [address], [place], [address], 11/26/2024 15:04:38 11/27/19 25 11/27/2024 VITAM IN D,25- OH,TO GRETEL,I A vitamin D,25-oh,tota l,ia 74 NG/mL 30-100 normal Vitam in D Statu s 25-OH Vitam in D: Defic iency : <20 ng/mL Insuf ficie ncy: 20 - 29 ng/mL Optim al: > or = 30 ng/mL For 25-OH Vitam in D testi ng on patie nts on D2-moreland pplem entat ion and patie nts for whom quant itati on of D2 and D3 fract ions is requi red, the [employer] Assur eD(TM ) 25-OH VIT D, (D2,D 3), LC/MS /MS is recom jarad d: order code 83462 (pardeep ents >2yrs ). See Note 1 Note 1 For addit ional infor [place] emerson refer to http: //[facility] satya ramosQue stDia gnost ics.c om/fa q/FAQ 199 (This link is being provi ded for infor hernando cobos/ educa dee l purpo ses only. ) Not Available [employer] [facility] [address] [place], [address], 11/27/2024 06:13:46 04/25/20 24 04/24/2024 LDCT, chest , for lung cance r scree carmina No observ ation record ed. [email or web address] [place] [address] [address] [place], [address], 05/02/2024 17:51:12 01/07/20 25 PFT, compl ete No observ ation record ed. [email or web address] Not Available 01/07 10:11:43 Result Notes None recorded. 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 5 12:45:50 [facility] l hyperten tabby 79719585 Active 2022 KAILA marie, [facility] L.L[facility]ad 5 12:45:41 Peripher al vascular disease 801884681 Active 2022 KAILA marie, [facility] 5 12:46:35 Chronic low back pain 305319492 Active 2022 KAILA marie, [facility] 5 12:45:29 Edema of lower extremit y 365030752 Completed 202310/02/2024 KAILA marie, [facility] 5 12:45:36 Acute exacerba tion of chronic obstruct arnulfo pulmonar y disease 841973133 Active 2023 KAILA marie, [facility] 5 12:45:08 Osteopor osis 52223796 Active 2023 KAILA marie, [facility]ad 5 12:45:54 Postmeno pausal osteopor osis 996166053 Active 2024 Reymundo Saavedra MD [address] [place] [address], [phone] , [facility] 5 14:00:24 Disorder of eyelid 74560217 Active 2024 Reymundo Saavedra MD [address] [place] [address], [phone] , [facility] 5 14:03:40 Bronchit is 90728141 Active 2024 Reymundo Saavedra MD [address] [place], [address] , [facility]. 12:53:43 Problem Notes None recorded. Procedures Surgical History Date Name Laterality Status Provider Name and Address Organization Details Recorded Time 5 jr skin tag removal completed Reymundo Saavedra MD [address] [place], [address], [facility] 11/26/2024 14:02:32 CT of lungs completed KAILA SAMS [facility], L.L[facility]ad 05/01/2024 18:46:24 Imaging Results None recorded. Procedure Notes None recorded. Medical Equipment None Reported. Allergies No known drug allergies Medications Name Sig Start Date Stop Date Status Note LastModified by Organization Details LastModified Time promethaz ine-DM 6.25 mg-15 mg/5 mL oral syrup TAKE 5ML BY MOUTH EVERY 4 HOURS 2023 active vo JR/tn Not Available Not Available Not Avai lable atenolol 100 mg-chlort halidone 25 mg tablet TAKE 1 TABLET BY MOUTH EVERY DAY active Not Available Not Available No t Available doxycycli ne hyclate 100 mg capsule Take 1 capsule twice a day by oral route for 7 days. 10/02 completed Not Available Not Available Not Available albuterol sulfate 2.5 mg/3 mL (0.083 %) solution for nebulizat ion USE 1 VIAL VIA NEBULIZE R EVERY 6 HOURS 09/27 completed Not Available Not Available Not Available meloxicam 15 mg tablet TAKE 1 TABLET BY MOUTH EVERY DAY NEEDED active Not Available Not Available No t Available prednison e 20 mg tablet Take 1 tablet every day by oral route for 5 days. 02/22 completed Not Available Not Available Not Available budesonid e 0.5 mg/2 mL suspensio n for nebulizat ion INHALE THE CONTENTS OF 1 VIAL VIA NEBULIZE R TWICE DAILY 09/12 completed Not Available Not Available Not Available monteluka st 10 mg tablet TAKE 1 TABLET BY MOUTH EVERY DAY active Not Available Not Available No t Available gabapenti n 100 mg capsule TAKE 1 CAPSULE BY MOUTH THREE TIMES A DAY NEEDED 05/25 completed Not Available Not Available Not Available albuterol sulfate HFA 90 mcg/actua tion aerosol inhaler INHALE 2 PUFFS EVERY 4 HOURS BY INHALATI ON ROUTE NEEDED 03/13 completed Not Available Not Available Not Available ondansetr on 4 mg disintegr ating tablet PLACE 1 TABLET ON TOP OF TONGUE AND ALLOW TO DISSOLVE 3 TIMES A DAY NEEDED active Not Available Not Available No t Available cholecalc iferol (vitamin D3) 125 mcg (5,000 unit) capsule Take 1 capsule every day by oral route. 2023 active vo JR/tn Not Available Not Available Not Avai lable Tylenol Arthritis 650 mg tablet,ex tended release active up to 6 QD Not Available Not Available Not Available Spiriva with HandiHale r 18 mcg and inhalatio n capsules INHALE 1 CAPSULE VIA HANDIHAL ER ONCE DAILY AT THE SAME TIME EVERY DAY 05/25 completed Not Available Not Available Not Available Vitamin D weekly 10/02 completed 50,000 ut x 8 weeks then 1000ut bid for life DOC Not Available Not Available Not Available Vitamin D3 two times daily 2020 active start this after finishin g the 50,000ut x 8 weeks Not Available Not Available Not Available gabapenti n TID prn 02/08 completed Recorded 08/01/19 23 4:18PM by Reymundo Saavedra MD, Office Visit; Refill Quantity : 0; Not Available Not Available Not Available Reclast 5 mg/100 mL intraveno us piggyback Inject 5 mg by intraven ous route as directed , for Osteopor osis. 11/26 completed Pt will be getting Prolia Not Available Not Available Not Available Prolia 60 mg/mL subcutane ous syringe Q12 months 10/02 completed Not Available Not Available Not Available oxygen 3L via canula at night active Not Available Not Available No t Available Breztri Aerospher e 160 mcg-9mcg- 4.8mcg/ac tuation HFA aerosol inhaler TAKE 2 PUFFS BY MOUTH TWICE A DAY active Not Available Not Available No t Available Jing Aerospher e 2 times per day 02/08 completed May give 3 month supply if insuranc e will allow.; Recorded 05/05/20 22 6:55AM by Lucy Arambula LPN, Office Visit; Refill Quantity : 1; Each; Not Available Not Available Not Available Vitals Date Recorded Body height Body mass index (BMI) Body weight Oxygen saturation Oxygen saturation in Arterial blood by Pulse oximetry Heart rate Respiratory rate Body temperature Systolic And Diastolic Provider Name and Address Organization Details Last Updated DateTime 5 152.4 cm 32.9 kg/m2 66006.9 2 g 92 % 92 % 58 /min 24 /min 97.7 [degF] 110/74 mm[Hg] KAILA SAMS [facility] 5 12:53:54 Date Recorded Body height Body mass index (BMI) Body weight Oxygen saturation Oxygen saturation in Arterial blood by Pulse oximetry Heart rate Respiratory rate Body temperature Systolic And Diastolic Provider Name and Address Organization Details Last Updated DateTime 5 152.4 cm 31.3 kg/m2 86887.5 8 g 93 % 93 % 68 /min 24 /min 97.7 [degF] 140/70 mm[Hg] [facility] 13:29:56 Date Recorded Body height Body mass index (BMI) Body weight Oxygen saturation Oxygen saturation in Arterial blood by Pulse oximetry Heart rate Respiratory rate Body temperature Systolic And Diastolic Provider Name and Address Organization Details Last Updated DateTime 5 152.4 cm 30.1 kg/m2 36932.3 2 g 86 % 86 % 56 /min 24 /min 97.8 [degF] 128/68 mm[Hg] [facility] [place] 5 12:01:12 Date Recorded Body height Body mass index (BMI) Body weight Oxygen saturation Oxygen saturation in Arterial blood by Pulse oximetry Heart rate Body temperature Respiratory rate Systolic And Diastolic Provider Name and Address Organization Details Last Updated DateTime 4 152.4 cm 31.9 kg/m2 74434.9 6 g 93 % 93 % 60 /min 98.1 [degF] 24 /min 146/80 mm[Hg] KAILA FLAQUITA [facility] 12:15:17 Date Recorded Body height Body mass index (BMI) Body weight Oxygen saturation Oxygen saturation in Arterial blood by Pulse oximetry Heart rate Respiratory rate Body temperature Systolic And Diastolic Provider Name and Address Organization Details Last Updated DateTime 4 152.4 cm 32.1 kg/m2 93251.8 5 g 88 % 88 % 64 /min 24 /min 98.5 [degF] 140/80 mm[Hg] DANNY MERCADO [facility] 16:08:39 Social History Question Answer Notes LastModified by Blood cell Storage ion Details LastModified Time Tobacco Smoking Status Former Smoker KAILA FLAQUITA [facility] 02/08/2023 11:44:32 Are You Blind Or Do You Have Difficulty Seeing? No Information not available 10/02/2024 Are You Deaf Or Do You Have Serious Difficulty Hearing? No Information not available 10/02/2024 When Did You Quit Smoking? 1-5yearssinc elastcigaret te Information not available 02/08/2023 What Was The Date Of Your Most Recent Tobacco Screening? 10/02/2024 Information not available 10/02/2024 What Is Your Relationship Status? Information not available 10/02/2024 At What Age Did You Start Smoking Tobacco? 17 [email or web address] Information not available 09/28/2023 How Much Tobacco Do You Smoke? No Information not available 10/02/2024 How Many Years Have You Smoked Tobacco? 30 [email or web address] Information not available 09/28/2023 Do You Have Difficulty Walking Or Climbing Stairs? Yes Information not available 10/02/2024 Sex: Unknown Functional Status Question Answer Note LastModified by Organizat ion Details LastModified Time Do you use any illicit or recreational drugs? No Information not available 02/08/2023 Do you or have you ever used any other forms of tobacco or nicotine? No [email or web address] Information not available 09/28/2023 What is your level of alcohol consumption? None Information not available 02/08/2023 Are you currently employed? No Information not available 10/02/2024 Do you have transportation difficulties? No Information not available 10/02/2024 Are you able to walk independently without assistance or assistive devices? [email or web address] Information not available 10/02/2024 Do you have difficulty doing errands alone? No Information not available 10/02/2024 Are you able to care for yourself independently? Yes Information not available 02/08/2023 Do you have difficulty dressing, bathing, grooming, or toileting? No Information not available 10/02/2024 Mental Status Question Answer Note LastModified by Organization D etails LastModified Time Do you have difficulty concentrating, remembering or making decisions? No [email or web address] Information no t available 10/02/2024 Family History Nothing Reported. Medical History Condition Response Coronary Artery Disease N Other Y Gout N Kidney Stones N Blood Diseases N Hyperthyroidism N Breast Cancer N Blood Transfusion N Hypothyroidism N Lung Disease N COPD Y Depression N Defects or Inherited Disease N Developmental or Behavioral Disorders N Breast Problem N Difficulty Swallowing N Anesthesia Complications N Anxiety Disorder N Meniere's disease N Muscle, Joint, or Bone Problems Y Vision or Eye Problems N Arthritis N Polyps N Infertility N Cancer N Varicosities N Stroke N Endometriosis N Bladder or Kidney Problems N High Cholesterol N Liver Disease N Headaches N Fibromyalgia N Kidney Disease N Allergies/Hayfever N Heart Problems N Ear or Hearing Problems N Hospitalizations N Thyroid Problems N GI Problems N ADD/ADHD N Skin Problems N Eating Disorder N Anemia N Constipation N Mental Illness N Ovarian Cancer N Diabetes N Bedwetting N Seizures/Epilepsy N Tuberculosis N Eczema N Diverticulitis N Abuse/Domestic Violence N Asthma N Reflux/GERD N Hepatitis N Heart Disease N Pulmonary Embolism N Chronic Ear Infections N Pre-Eclampsia N Hypertension Y Chicken Pox N Autism Spectrum Disorder (ASD) N Osteoporosis Y Thrombophilias N Gynecological HistoryNo gynecological history recorded. Obstetrics History GPAL:G 0 P 0 0 0 0 Immunizations Vaccine Type Date Status Note Provider Nam e and Address Organization Details Recorded Time Influenza, MDCK, quadrivalent, PF 9 completed DANNY marie [facility] 05/25/2023 12:58:33 COVID-19, mRNA, LNP-S, PF, 100 mcg/0.5mL dose or 50 mcg/0.25mL dose 1 completed DANNY marie [facility] 05/25/2023 12:58:33 Influenza, split virus, trivalent, preservative 0 completed Not Available [facility] 07/12/2023 14:15:33 pneumococcal polysaccharide PPV23 0 completed Not Available [facility] 07/12/2023 14:15:32 Influenza, high-dose, trivalent, PF 7 completed DANNY marie [facility] 05/25/2023 12:58:33 Influenza, split virus, trivalent, preservative 8 completed Not Available [facility] 07/12/2023 14:15:33 Past Encounters Encounter ID Performer Location Encounter Start Date Encounter Closed Date Diagnosis/Indication Diagnosis SNOMED-CT Code Diagnosis ICD10 Code Diagnosis IMO Codes Diagnosis Note [id number] Reymundo Saavedra MD [facility] ([facility]) [address] [place] [address] [id number] 10/03/2022 11:46:22 10/04/2022 12:42:31 Chronic obstructive pulmonary disease 08359570 J44.9 Essential hypertension 00208524 I10 Peripheral vascular disease 797401336 I73.9 Chronic low back pain 27 0600013 M54.50 Osteoporosis 19181243 M8 1.0 [id number] ROMAN RIVERA [facility] ([facility]) [address] [place] [address] [id number] 5 10/17/2022 11:43:49 10/17/2022 21:08:07 Acute exacerbation of chronic obstructive pulmonary disease 798752959 J44.1 Encouraged patient to continue to rest and push fluids. Encouraged patient to continue using Breztri as prescribed , as this is a maintenanc e inhaler, not acute. Educated patient that albuterol can be used PRN for SOB and coughing. Encouraged patient to continue ambulating as tolerated and to not suppress her cough. If severe chest pain or SOB occurs, go to ED. Recommend following up with PCP in 2 weeks for re-evaluat ion. [id number] Reymundo Saavedra MD [facility] ([facility]) [address] [place] [address] [id number] 5 02/08/2023 11:03:23 02/08/2023 16:49:28 Low back pain 779613376 M54.50 [id number] Reymundo Saavedra MD [facility] ([facility]) [address] [place] [address] [id number] 5 05/25/2023 12:26:30 05/26/2023 14:46:44 Adult health examination 340436823 Z00.01 Screening for cardiovascular system disease 396996474 Z13.6 Screening for osteoporosis 348252115 Z13.820 Screening mammography 24 427866 Z12.31 We discussed and she doesn't want one again. Chronic low back pain 27 9269736 M54.50 Low back pain 362551423 M54.50 Peripheral vascular disease 379744243 I73.9 Chronic ob structive pulmonary disease 82979900 J44.9 Essential hypertension 73110709 I10 Cough 77404173 R05.9 [id number] Reymundo Saavedra MD [facility] ([facility]) [address] [place] [address] [id number] 5 07/12/2023 14:15:10 07/12/2023 16:01:24 Chronic obstructive pulmonary disease 18355391 J44.9 Chronic low back pain 27 6771735 M54.50 Essential hypertension 06949048 I10 Peripheral vascular disease 943889302 I73.9 Osteoporos is of disuse with pathological fracture 052044326 M80.00XS Edema of l ower extremity 708522461 R60.0 Vitamin D deficiency 347 62783 E55.9 [id number] Reymundo Saavedra MD [facility] ([facility]) [address] [place] [address] [id number] 5 09/13/2023 11:23:22 09/13/2023 15:41:27 Chronic obstructive pulmonary disease 36361073 J44.9 Essential hypertension 62322377 I10 [id number] Kana Zhong MD [facility] ([facility]) [address] [place] [address] [id number] 5 09/28/2023 17:41:02 09/28/2023 18:37:05 Acute exacerbation of chronic obstructive pulmonary disease 031947478 J44.1 Concerned about exacerbati on of her COPD given her symptoms. Patient does have oxygen at home, however the patient was encouraged to monitor oxygen rate and if it does not improve or it worsens then she should proceed to the ER. Will start prednisone and Doxy to help. Continue Breztri twice daily and utilize albuterol every 4 hours as needed. Follow-up if symptoms are not improving. [id number] ROMAN CARSON [facility] ([facility]) [address] [place] [address] [id number] 5 11/29/2023 09:14:56 11/29/2023 12:21:06 Nausea 348589541 R11.0 Patient presents with side effects from zoledronic infusion yesterday. VSS. discussed nausea for zofran.F/u if symptoms worsen. [id number] Reymundo Saavedra MD [facility] ([facility]) [address] [place] [address] [id number] 5 03/05/2024 11:32:12 03/05/2024 13:08:28 Chronic obstructive pulmonary disease 71663109 J44.9 Chronic low back pain 27 5998427 M54.50 Essential hypertension 30639043 I10 Loss of scalp hair 62228 0004 L65.9 Soft tissu e swelling of elbow joint 057134910 M25.429 Thrombocyt openic disorder 068384796 D69.6 [id number] Reymundo Saavedra MD [facility] ([facility]) [address] [place] [address] [id number] 5 05/06/2024 15:15:32 05/07/2024 07:58:37 Osteoporosis of disuse with pathological fracture 623453393 M80.00XS Acute exac erbation of chronic obstructive pulmonary disease 516710999 J44.1 Hypothyroidism 97668498 E03.9 Acute uppe r respiratory infection 74816841 J06.9 Thrombocyt openic disorder 105444341 D69.6 [id number] Reymundo Saavedra MD [facility] ([facility]) [address] [place] [address] [id number] 5 10/02/2024 12:24:11 10/03/2024 07:11:21 Chronic obstructive pulmonary disease 83685145 J44.9 Chronic low back pain 27 9493967 M54.50 Low back pain 498478953 M54.50 Essential hypertension 27000890 I10 Osteoporosis 05011894 M8 1.0 Peripheral vascular disease 007639277 I73.9 Lesion of skin of face 6426776367 06 L98.9 [id number] Reymundo Saavedra MD [facility] ([facility]) [address] [place] [address] [id number] 5 11/26/2024 12:59:44 11/27/2024 09:56:15 Lesion of skin of face 4235078198 06 L98.9 158096 Postmenopa usal osteoporosis 400451015 M81.0 2201 Disorder of eyelid 58410 004 H02.9 7120539 Peripheral vascular disease 819756154 I73.9 Fatigue 28308013 R53.82 817043 Qualitativ e platelet disorder 146712182 D69.1 32979 [id number] Reymundo Saavedra MD [facility] ([facility]) [address] [place] [address] [id number] 5 02/10/2025 11:21:11 02/10/2025 13:12:21 Productive cough 58747026 R05.8 696072 Bronchitis 37348085 J40 22337 Chronic low back pain 27 9776631 M54.50 Chronic ob structive pulmonary disease 97636294 J44.9 Health Concerns Section Related Observation LastModified by Organization Detai ls LastModified Time None Recorded Concern Status LastModified by Organization Details LastModified Time None Recorded Advance Directives Directive None Recorded Payers Insurance Date Sequence Insurance Name Policy Number Policy Garcia Covered Member ID Garcia Member ID Guarantor Name 02/07/2025 1 [facility] (MEDICARE REPLACEMENT/A DVANTAGE - PPO) [id number] Tanja Fulton [id number] Tanja Fulton Notes Date Note Type Note Provider Name and Address Organization Details Recorded Time 03/05/2024 text/html Back PainReporte d by PatientHPIFor associated symptoms, patient reportsweakness. For quality, patient reportsstiffness. For severity, patient reportsunchanged. Hypertension IM/FMReported by PatientHPIFor severity, patient reportsstage 1 (130-139/80-89 mmhg). For associated symptoms, patient reportsfatigue,palpita tions (occasional),exertiona l dyspnea,decline in exercise capacity,muscle weakness, andchest painbut reportsno headaches. For quality, patient reportshere for check-up. For duration, patient reportshtn present for ___ years. COPDReported by PatientHPI:For severity, patient reportsvery limitingbut reportssevere. For aggravating factors, patient reportsworse with exertion. For associated symptoms, patient reportsdyspnea during exertion,wheezing, andchest tightnessbut reportsnot coughing up sputumandno cough. For duration, patient reportschronic. Pt feels that her breathing is becoming worse. She has a Nebulizer and wondering if this would be helpful? She is still using oxygen at night. On 11/28/23, pt received Reclast for the first time. She had previously received Prolia, but was changed due to insurance coverage. She expressed concern if she should take it again because after receiving she was not able to sleep that night due to not feeling well, she had pain all over and felt like she had the flu, she had nausea. She has noticed since receiving the reclast she has been having and continues to notice Hair loss. Pain swelling in both elbows, right is worse than Left. She often leans on counter or on a surface she is near . She leans forward often she stated because it feels better on her back. She said her back does not really hurt, just feels weak. Bruise on Right arm around elbow, denies injury Reymundo Saavedra MD [address] [place] [address], [phone], [facility] [place] 03/05/2024 12:59:57 05/06/2024 text/html Back PainReporte d by PatientHPIFor associated symptoms, patient reportsweakness. For location, patient reportscervical __,thoracic __,lumbar __, andsacral __. For quality, patient reportsstiffness,gnawi ng,tender, andpressure. For severity, patient reportsunchanged. CoughReported by PatientHPIFor severity, patient reportsworsening. For associated symptoms, patient reportschest pain (tightness),wheezing,c hest wall tenderness,shortness of breath,nasal discharge,tiredness, anddyspneabut reportsno fever. For quality, patient reportsharsh. For duration, patient reportsconstant. COPDReported by PatientHPI:For severity, patient reportsvery limitingbut reportssevere. For aggravating factors, patient reportsworse with exertion. For associated symptoms, patient reportsdyspnea during exertion,wheezing, andchest tightnessbut reportsnot coughing up sputumandno cough. For duration, patient reportschronic. Pt feels that her breathing is becoming worse. She is using the Breztri but it seems like that is not helping like it used to. She is still using oxygen at night. Pt had a lung scan on 04/24/24. Pt states a couple days ago she started coughing it has progressively gotten worse, pt has chest congestion with wheezing, pt states every time she coughs she wets her pants. Pt states she thinks she had a reaction to the reclast when she got the infusion back in November 2023, she was jittery, couldn't sleep. Reymundo Saavedra MD [address] [place] [address], [phone], [facility] 05/10/2024 08:01:28 10/02/2024 text/html Back PainReporte d by PatientHPIFor associated symptoms, patient reportsweakness. For location, patient reportscervical __,thoracic __,lumbar __, andsacral __. For quality, patient reportsstiffness,gnawi ng,tender, andpressure. For severity, patient reportsunchanged. jr skin lesionReported by PatientHPIFor location, patient reportsfaceandeyelid. For quality, patient reportsgrowing __. For severity, patient reportsmild. For duration, patient reports1 months. For timing, patient reportsabrupt. For associated symptoms, patient reportsno fever,no scabbing,no bruising,no draining, andno lesions multiplying. Hypertension F/UReported by PatientHPIFor medications, patient reportstaking medications as directedandno side effects from medication. For lifestyle, patient reportsregular exerciseandlimits sodium intake. For associated symptoms, patient reportsno dizziness,no lightheadedness,no chest pain,no shortness of breath,no palpitations,no edema,no calf pain with exertion, andno headache. COPDReported by PatientHPI:For severity, patient reportsvery limitingbut reportssevere. For aggravating factors, patient reportsworse with exertion. For associated symptoms, patient reportsdyspnea during exertion,wheezing, andchest tightnessbut reportsnot coughing up sputumandno cough. For duration, patient reportschronic.ROS as noted in the HPI Reymundo Saavedra MD [address] [place] [address], [phone], [facility] 10/02/2024 18:48:35 11/26/2024 text/html jr skin lesionRe ported by PatientIFor location, patient [facility]. For quality, patient reportsgrowing __. For severity, patient reportsmild. For duration, patient reports2 months. For timing, patient reportsabrupt. For associated symptoms, patient reportsno fever,no scabbing,no bruising,no draining, andno lesions multiplying. COPDReported by PatientI:For severity, patient reportsvery limitingbut reportssevere. For aggravating factors, patient reportsworse with exertion. For associated symptoms, patient reportsdyspnea during exertion,wheezing, andchest tightnessbut reportsnot coughing up sputumandno cough. For duration, patient reportschronic. pt is here for lesion removal from eyelid Reymundo Saavedra MD [address] [place] [address], [phone], [facility] 12/22/2024 01:16:33 02/10/2025 text/html CoughReported by PatientHPIFor associated symptoms, patient reportswheezing,sputum production, andshortness of breathbut reportsno fever,no heartburn, andno vomiting. For quality, patient reportsproductive. For severity, patient reportsmoderate. For duration, patient reportsconstant. Pt is here to review her labs, you had said she has some mild abnormalities. Pt has a cough, wheezing, and green sputum. Pt would like to discuss getting Home Health she has not been able to do the housework like sweeping and dusting and basic housecleaning. Reymundo Saavedra MD [address] [place] [address], [phone], [facility] [place] 02/10/2025 13:02:34 OBGyn Episode No OBEpisode recorded.
[2025-04-19 12:10] VITALS: O2SAT 84
[2025-04-19 12:16] VITALS: BP 167/63; PULSE 66; RESP 21; O2SAT 97
[2025-04-19 12:55] VITALS: BP 156/69; PULSE 62; RESP 22; O2SAT 99
--- NOTE | 2025-04-19 13:17 | W.ED.NECK ---
HPI - Neck Pain/Injury General: Chief Complaint: Neck Pain/Injury Stated Complaint: neck pain Time Seen by Provider: 04/19/25 12:29 History of Present Illness: 80-year-old female presents emergency room with worsening chronic neck pain worse this morning. She has no radiation of pain into her arms she has difficulty with shoulder difficulty and raising her left is more longstanding issue. No recent trauma or injury she has had multiple thoracic and lumbar compression fractures in the past. No previous surgery or nerve blocks epidurals etc. in the neck. Related Data Home Medications ?Medication ?Instructions ?Recorded ?Confirmed atenolol 100 mg-chlorthalidone 25 1 tab PO DAILY 11/03/21 02/20/23 mg tablet meloxicam 7.5 mg tablet 7.5 mg PO DAILY 02/20/23 02/20/23 Previous Rx's ?Medication ?Instructions ?Recorded albuterol sulfate 2.5 mg/3 mL 2.5 mg (3 mL) inhalation Q6H #180 12/21/22 (0.083 %) solution for nebulization mL albuterol sulfate 90 mcg/actuation 2 puff inhalation Q6H PRN 12/21/22 aerosol inhaler shortness of breath or wheezing #8.5 grams budesonide 0.5 mg/2 mL suspension 0.5 mg (2 mL) inhalation BID #60 mL 03/06/23 for nebulization tiotropium bromide 18 mcg capsule 1 cap inhalation DAILY #90 03/06/23 with inhalation device (Spiriva inhalations with HandiHaler) formoterol fumarate 20 mcg/2 mL 2 ml inhalation BID #60 mL 08/11/23 solution for nebulization methylprednisolone 4 mg tablets in See Rx Instructions PO .COMPLEX 04/19/25 a dose pack (Medrol (Ignacio)) #21 ea Allergies Allergy/AdvReac Type Severity Reaction Status Date / Time No Known Allergies Allergy Verified 02/20/23 08:35 Review of Systems Const: Denies: fever(s) or chills Card: Denies: chest pain Resp: Denies: dyspnea GI: Denies: abdominal pain : Denies: dysuria, urinary frequency or urinary urgency Musc: Reports: neck pain; Denies: back pain Skin/Breast: Denies: rash PFSH ED PFSH: Medical History Osteoporosis Vitamin D deficiency COPD (chronic obstructive pulmonary disease) History of compression fracture of vertebral column History of COVID-19 Hypertension Surgical History S/P colonoscopy (~2006) History of appendectomy Age 15 Family History Other Hypertension Denies family history of Diabetes CAD (coronary artery disease) Clotting disorder Dementia Hyperlipidemia Psychiatric illness Chronic kidney disease (CKD) Suicide Anesthesia complication Bleeding disorder Lung disease Cancer Stroke Social History Smoking and tobacco/nicotine status: former use of tobacco/nicotine Quit status (tobacco/nicotine): has quit using Year quit tobacco: 2019 Former quit date comment: 1ppd X 30yr Alcohol intake: never Substance/Drug Use: never Physical Exam Const: COMMON NORMALS: no acute distress GENERAL APPEARANCE: cooperative and comfortable ORIENTATION/CONSCIOUSNESS: Yes awake, Yes oriented to person, Yes oriented to place and Yes oriented to time HENMT: COMMON NORMALS: normocephalic, atraumatic and hearing grossly normal bilaterally HEAD & SCALP: normocephalic and atraumatic Neck/C-Spine: OTHER: Mild pain with range of motion. Resp: COMMON NORMALS: normal respiratory effort, No retractions, No use of accessory muscles and clear to auscultation bilaterally AUSCULTATION: clear to auscultation bilaterally Cardio: COMMON NORMALS: regular rate, regular rhythm and No murmurs present (Cardio) RATE: regular rate RHYTHM: regular rhythm GI: COMMON NORMALS: Soft to palpation and No hepatosplenomegaly present AUSCULTATION: Yes normoactive bowel sounds PALPATION: Yes Soft to palpation, No Tenderness to palpation present (GI), No Guarding due to palpation present (GI) and Yes No hepatosplenomegaly present Extremity: COMMON NORMALS: normal to inspection, capillary refill normal, no clubbing, cyanosis or edema, no calf tenderness and no pedal edema OTHER: Strength in the upper extremities normal neurovascularly intact Neuro: SENSORIUM/ORIENTATION: Yes oriented to person, Yes oriented to place and Yes oriented to time Skin: COMMON NORMALS: no rashes or lesions noted GENERAL SKIN EXAM: no rashes or lesions noted Course Vital Signs: Vital signs: Vital Signs Temperature 97.7 F 04/19/25 11:51 Pulse Rate 67 04/19/25 14:41 Respiratory Rate 22 H 04/19/25 12:55 Blood Pressure 199/89 04/19/25 14:41 Pulse Oximetry 95 04/19/25 14:41 Oxygen Delivery Me thod Nasal Cannula 04/19/25 12:55 Oxygen Flow Rate 3 04/19/25 12:55 MDM - Neck Pain/Injury Medical Decision Making Pain improved with medications given Significant arthritic changes to space narrowing on the CT spine of the neck but there is no compression fractures no spondylolisthesis or spondylolysis. Discharge patient home pain is improved discharged home on a steroid taper continue meloxicam previously prescribed follow-up with her primary care doctor return if has further problems. Lab Data Radiology Impressions Cervical Spine X-Ray 04/19/25 13:21 IMPRESSION: Nonacute findings. All radiology interpretation(s) finalized by discharge ED provider radiology interpretation(s): X-ray cervical spine reviewed by myself there is no compression fractures no spinal disease spondylolysis significant narrowing of disc space and arthritic changes which all appears to be chronic no acute findings Discharge Plan Discharge Patient Disposition: Home Clinical Impression: Osteoarthritis cervical spine Condition: Stable Prescriptions: New methylprednisolone [Medrol (Ignacio)] 4 mg tablets,dose pack See Rx Instructions .ROUTE .COMPLEX Qty: 21 0RF Rx Instructions: orally per package directions No Action albuterol sulfate 90 mcg/actuation HFA aerosol inhaler 2 puff inhalation Q6H PRN (Reason: shortness of breath or wheezing) Qty: 8.5 6RF albuterol sulfate 2.5 mg /3 mL (0.083 %) solution for nebulization 2.5 mg inhalation Q6H Qty: 180 6RF atenolol-chlorthalidone 100-25 mg tablet 1 tab PO DAILY meloxicam 7.5 mg tablet 7.5 mg PO DAILY tiotropium bromide [Spiriva with HandiHaler] 18 mcg capsule, w/inhalation device 1 cap inhalation DAILY Qty: 90 6RF Rx Instructions: puncture 1 cap using device; one dose = 2 inhalations budesonide 0.5 mg/2 mL suspension for nebulization 0.5 mg inhalation BID Qty: 60 4RF formoterol fumarate 20 mcg/2 mL solution for nebulization 2 ml inhalation BID Qty: 60 0RF Discharge Orders: Discharge ED (Routine); Ordered 04/19/25 Ordered By: Dinh Hess Referrals: Giorgi Sanchez MD [Primary Care Provider, Family Practice] Discharge Diet: Usual diet Discharge Activity: Increase activity as tolerated Patient Instructions: Opioid Safety, Pain Management, Patient Portal & [place] Instructions Activity Restrictions/Additional Instructions: [facility]. It is very important that you follow up as instructed or that you return to the Emergency Department should you have concerns or if your condition changes or worsens in any way. Emergency department visits are focused on emergent conditions, in some cases you may require further evaluation on an outpatient basis. You were seen in the emergency room with a complaint of neck pain. X-ray of your neck shows significant arthritic changes but no fractures or significant abnormality. You improved with medications that were given. Will discharge you home on a steroid taper you could continue to use the previously prescribed meloxicam and follow-up with your doctor. (Please note that included in your discharge packet is information concerning opioid safety and pain management. This information is given to all patients were discharged from the ER regardless of their discharge diagnosis or the medicines they usually take or are prescribed.) Print Language: Chinese Coding Level of Care Code ED Call Center Specialist for Keon Soria
--- NOTE | 2025-04-19 13:21 | XRR_ITS ---
PROCEDURE INFORMATION: Exam: XR Cervical Spine Exam date and time: 04/19/2025 1:40 PM Age: 80 years old Clinical indication: Neck pain TECHNIQUE: Imaging protocol: Radiologic exam of the cervical spine. Views: 2 or 3 views. FINDINGS: Bones/joints: C6 and C7 are partially obscured by the patient's shoulders on the lateral projections. No fracture other acute abnormality. There is osseous demineralization. There is normal alignment. There is [id number] C5, C6, and C7 disc space narrowing with small marginal osteophytes. Mild narrowing with small marginal osteophytes is seen at the C3 level. There is facet arthropathy. Soft tissues: Unremarkable. Vasculature: Suspect left carotid artery calcification. XR/XR cervical spine 3V* [id number] IMPRESSION: Nonacute findings.
[2025-04-19] MEDS: methylPREDNISolone sod succ 125 mg/2 mL INJ IVP (13:42)
[2025-04-19 14:41] VITALS: BP 199/89; PULSE 67; O2SAT 95
== END 2025-04-19 14:42 | disposition home or self-care (01) ==
PROVIDERS: Emergency Provider Family Medicine; PCP Family Medicine
DX: M47.812 Spondylosis without myelopathy or radiculopathy, cervical region (principal); Z87.891 Personal history of nicotine dependence; J44.9 Chronic obstructive pulmonary disease, unspecified; I10 Essential (primary) hypertension
CPT/HCPCS: 72040; 96372; 96374; 99284; J1885; J2919